=== PATIENT | male | born 1980 | race Two or more races ===

== ENCOUNTER 2023-01-19 07:55 | Emergency (ER) | payer OTHER ==
[2023-01-19] MEDS ORDERED: CEFAZOLIN SODIUM 1 GM/VIAL ONE (08:17)
[2023-01-19] MEDS ORDERED: NA CHLORIDE 0.9% 100 ML ONE (08:17)
[2023-01-19] MEDS ORDERED: TDAP (DIPHTH,PERTUSS(ACELL),TET VAC) 0.5 ML VIAL IMVAC ONE (08:17)
[2023-01-19 08:30] LABS: Absolute Lymphocytes (CBC) 1.5 K/uL (0.7-4.9); Hematocrit 41.1 % (39.6-49.0); Lymphocytes % 14.7 % (15.3-44.8); MCV 92.8 fL (80-100); MPV 6.8 fL (7.6-11.3); RBC Red Blood Cell Count 4.42 M/uL (4.33-5.43)
[2023-01-19 08:48] LABS: Albumin 4.3 g/dL (3.4-5.0); Bilirubin Total 0.6 mg/dL (0.2-1.0); Potassium 3.6 mmol/L (3.5-5.1)
--- NOTE | 2023-01-19 08:51 | RAD REPORT ---
EXAM DESCRIPTION: RAD - Hand Right 3 View - 01/19/2023 8:38 am CLINICAL HISTORY: PAIN COMPARISON: No comparisons FINDINGS/IMPRESSION: Dislocation at the fifth MCP. The distal fifth finger is dislocated radially. T ransversely oriented fracture at the mid fourth metacarpal with greater than a shaft width of radial displacement and 8 millimeters of overriding.
[2023-01-19] MEDS ORDERED: FENTANYL CITR 100 MCG/2 ML ONE (09:00)
[2023-01-19] MEDS ORDERED: NA CHLORIDE 0.9% 50 ML ONE (09:46)
[2023-01-19] MEDS ORDERED: CEFTRIAXONE 1000 MG/VIAL ONE (09:46)
[2023-01-19] MEDS ORDERED: Ringers Lactate 1,000 ML IV ONE (09:46)
[2023-01-19] MEDS ORDERED: ONDANSETRON 4 MG/2 ML VIAL ONE (09:52)
[2023-01-19] MEDS ORDERED: MORPHINE 4 MG/ML SYR ONE (10:44)
--- NOTE | 2023-02-01 16:09 | ER ---
Nurse's Notes [facility] Name: Carlos Mendez Age: 42 yrs Sex: Male : 1980 Arrival Date: 01/19/2023 Time: 07:56 Bed 3 Private MD: Diagnosis: Open fracture to right fourth metacarpal;Dislocation of left little finger Presentation: 01/19 07:56 Chief complaint: Patient states: Avulsion injury to right pinky/hand. C/O pain to right ld1 hand - reports being at work this morning, latch slammed down on right hand. Coronavirus screen: At this time, the client does not indicate any symptoms associated with coronavirus-19. Ebola Screen: No symptoms or risks identified at this time. Initial Sepsis Screen: Does the patient meet any 2 criteria? No. Patient's initial sepsis screen is negative. Does the patient have a suspected source of infection? Yes: Other: Open wound to right hand. Risk Assessment: Do you want to hurt yourself or someone else? Patient reports no desire to harm self or others. Onset of symptoms was January 19, 2023. 07:56 Method Of Arrival: EMS: [facility] ld1 07:56 Acuity: MELLISSA 3 ld1 Triage Assessment: 07:59 General: Appears in no apparent distress. comfortable, Behavior is calm, cooperative, ld1 appropriate for age. Pain: Complains of pain in right hand Pain does not radiate. Pain currently is 5 out of 10 on a pain scale. Quality of pain is described as throbbing. EENT: No signs and/or symptoms were reported regarding the EENT system. Neuro: Level of Consciousness is awake, alert, obeys commands, Oriented to person, place, time, situation. Cardiovascular: Capillary refill < 3 seconds Patient's skin is warm and dry. Respiratory: Airway is patent Respiratory effort is even, unlabored. GI: Abdomen is flat, non-distended. : No signs and/or symptoms were reported regarding the genitourinary system. Derm: No signs and/or symptoms reported regarding the dermatologic system. Musculoskeletal: No signs and/or symptoms reported regarding the musculoskeletal system. Injury Description: Crush injury sustained to right hand. Historical: - Allergies: 07:59 Ibuprofen; ld1 - Home Meds: 07:59 atorvastatin 40 mg oral tablet every evening [Active]; aspirin 81 mg Oral capsule once ld1 [Active]; losartan 50 mg oral tablet once [Active]; carvedilol 12.5 mg oral tablet once [Active]; - PSHx: 07:59 angioblasty; ld1 - Immunization history:: Adult Immunizations up to date, Last tetanus immunization: unknown. - Social history:: Smoking status: Patient denies any tobacco usage or history of. Patient/guardian denies using alcohol. - Family history:: not pertinent. Screenin:06 [facility] ED Fall Risk Assessment (Adult) History of falling in the last 3 months, ld1 including since admission No falls in past 3 months (0 pts). Abuse screen: Denies threats or abuse. Denies injuries from another. Nutritional screening: No deficits noted. Tuberculosis screening: No symptoms or risk factors identified. Assessment: 08:06 Reassessment: See triage assessmnet. ld1 09:10 Reassessment: Patient appears in no apparent distress at this time. No changes from ld1 previously documented assessment. Patient and/or family updated on plan of care and expected duration. Pain level reassessed. Patient is alert, oriented x 3, equal unlabored respirations, skin warm/dry/pink. 10:26 Reassessment: Patient appears in no apparent distress at this time. Patient and/or ld1 family updated on plan of care and expected duration. Pain level reassessed. PT waiting on EMS transport to surgery center. On phone with . reports minimal pain at this time. 10:42 Reassessment: Pt requesting pain medication prior to EMS transport. See MAR for orders. ld1 Vital Signs: 07:56 BP 154 / 97; Pulse 84; Resp 18; Temp 97.9(O); Pulse Ox 100% on R/A; Weight 75 kg; ld1 Height 5 ft. 7 in. ; Pain 5/10; 08:39 BP 142 / 99; Pulse 85; Resp 18; Pulse Ox 100% on R/A; ld1 09:15 BP 137 / 86; Pulse 84; Resp 18; Pulse Ox 100% on R/A; Pain 8/10; ld1 10:25 BP 141 / 84; Pulse 87; Resp 18; Pulse Ox 100% on R/A; ld1 10:42 BP 139 / 76; Pulse 87; Resp 18; Pulse Ox 100% on R/A; Pain 8/10; ld1 07:56 Body Mass Index 25.90 (75.00 kg, 170.18 cm) ld1 07:56 Pain Scale: Adult ld1 09:15 Pain Scale: Adult ld1 10:42 Pain Scale: Adult ld1 ED Course: 07:56 Patient arrived in ED. ld1 07:56 Mahin Schmid MD is Attending Physician. rt 07:59 Triage completed. ld1 07:59 Arm band placed on right wrist. ld1 08:06 Patient has correct armband on for positive identification. Placed in gown. Bed in low ld1 position. Call light in reach. Side rails up X2. Pulse ox on. NIBP on. Door closed. Noise minimized. Warm blanket given. 08:06 No provider procedures requiring assistance completed. ld1 08:29 Initial lab(s) drawn, by me, sent to lab. Inserted saline lock: 20 gauge in left bc6 antecubital area, using aseptic technique. 08:29 COVID-19 SARS RT PCR Sent. bc6 08:29 CMP Sent. bc6 08:30 CBC with Diff Sent. bc6 08:30 SARS RAPID Sent. bc6 08:36 COVID-19 SARS RT PCR Sent. ld1 08:39 Adela Casey, GRECIA is Primary Nurse. ld1 08:39 Hand Right 3 View XRAY In Process Unspecified. EDMS 10:43 Patient transferred, IV remains in place. 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 ld1 Exp: 09/28/2023. Lot #: [id number]. } Route: IM; Site: left deltoid; 09:08 Follow up: Response: (VIS) Vaccine information sheet provided today. Questions and/or ld1 concerns addressed. VIS edition date: Jun 16, 2021.; No adverse reaction 08:33 Drug: ceFAZolin IVPB 2 grams Route: IVPB; Infused Over: 30 mins; Site: left antecubital;ld1 09:08 Follow up: Response: No adverse reaction; IV Intake: 100ml ld1 09:08 Drug: fentaNYL (PF) IVP 100 mcg Route: IVP; Site: left antecubital; ld1 09:39 Follow up: Response: No adverse reaction ld1 09:51 Drug: Rocephin - Rocephin (cefTRIAXone) IVPB 1 grams Route: IVPB; Infused Over: 30 ld1 mins; Site: left antecubital; 09:51 Drug: Ringers - Lactated Ringers Solution IV 1000 ml Route: IV; Rate: 125 ml/hr; Site: ld1 left antecubital; 09:51 Drug: Ondansetron IVP 4 mg Route: IVP; Site: left antecubital; ld1 10:42 Follow up: Response: No adverse reaction; Nausea is decreased ld1 10:42 Drug: morphine IVP or IV 4 mg Route: IVP; Infused Over: 4 mins; Site: left antecubital; ld1 10:42 Follow up: Response: No adverse reaction ld1 Medication: 08:06 VIS not applicable for this client. ld1 Intake: 09:08 IV: 100ml; Total: 100ml. ld1 Outcome: 09:02 ER care complete, transfer ordered by . rt 10:43 Transferred by ground EMS ld1 10:43 Condition: stable 10:43 Instructed on the need for transfer. 10:43 Patient left the ED. ld1 Signatures: Dispatcher [employer] EDMS Adela Casey RN RN ld1 Mahin Schmid MD MD rt Alondra Winchester bc6 Corrections: (The following items were deleted from the chart) 08:05 07:59 Allergies: No Known Allergies; ld1 ld1 10:26 09:15 BP 137 / 86; Pulse 84bpm; Resp 18bpm; Pulse Ox 100% RA; ld1 ld1
--- NOTE | 2023-02-01 16:09 | EDPHYS ---
Physician Documentation [facility] Name: Carlos Mendez Age: 42 yrs Sex: Male : 1980 Arrival Date: 01/19/2023 Time: 07:56 Bed 3 Private MD: ED Physician Mahin Schmid HPI: 01/19 07:58 This 42 yrs old Male presents to ER via Unassigned with complaints of Hand Injury. rt 07:58 Patient presents to the ED with an injury to the right hand occurring just prior to rt arrival. Patient was working on the [employer] when his sugar patch closed onto his hand causing a laceration. Patient states that the bone was protruding, he wrapped it on his own. Was brought here for further evaluation. Pain is aching nature, nonradiating, no other aggravating alleviating factors. He denies any other injuries.. Historical: - Allergies: 07:59 Ibuprofen; ld1 - Home Meds: 07:59 atorvastatin 40 mg oral tablet every evening [Active]; aspirin 81 mg Oral capsule once ld1 [Active]; losartan 50 mg oral tablet once [Active]; carvedilol 12.5 mg oral tablet once [Active]; - PSHx: 07:59 angioblasty; ld1 - Immunization history:: Adult Immunizations up to date, Last tetanus immunization: unknown. - Social history:: Smoking status: Patient denies any tobacco usage or history of. Patient/guardian denies using alcohol. - Family history:: not pertinent. ROS: 07:58 Constitutional: Negative for fever, chills, and weight loss, Cardiovascular: Negative rt for chest pain, palpitations, and edema, Respiratory: Negative for shortness of breath, cough, wheezing, and pleuritic chest pain, Abdomen/GI: Negative for abdominal pain, nausea, vomiting, diarrhea, and constipation, Skin: Negative for injury, rash, and discoloration, Neuro: Negative for headache, weakness, numbness, tingling, and seizure, Psych: Negative for depression, anxiety, suicide ideation, homicidal ideation, and hallucinations. 07:58 MS/extremity: Positive for injury or acute deformity, laceration. Vital Signs: 07:56 BP 154 / 97; Pulse 84; Resp 18; Temp 97.9(O); Pulse Ox 100% on R/A; Weight 75 kg; ld1 Height 5 ft. 7 in. ; Pain 5/10; 08:39 BP 142 / 99; Pulse 85; Resp 18; Pulse Ox 100% on R/A; ld1 09:15 BP 137 / 86; Pulse 84; Resp 18; Pulse Ox 100% on R/A; Pain 8/10; ld1 10:25 BP 141 / 84; Pulse 87; Resp 18; Pulse Ox 100% on R/A; ld1 10:42 BP 139 / 76; Pulse 87; Resp 18; Pulse Ox 100% on R/A; Pain 8/10; ld1 07:56 Body Mass Index 25.90 (75.00 kg, 170.18 cm) ld1 07:56 Pain Scale: Adult ld1 09:15 Pain Scale: Adult ld1 10:42 Pain Scale: Adult ld1 Procedures: 10:39 Reduction: of the MCP of right little finger, using traction, Patient tolerated well. rt During the procedure, was noted that the fracture went transversely through the joint space, the articular surface was visualized, unable to reduce due to lack of supporting structures.. MDM: 07:57 Patient medically screened. rt 10:38 Differential diagnosis: dislocation, open fracture, Dislocation. Data reviewed: vital rt signs, nurses notes, radiologic studies. Consideration of Admission/Observation Escalation of care including admission/observation considered. Patient be transferred for hand surgery. Management of patient was discussed with the following: Traffic Monitor Specialist: Discussed with hand surgeon who accepts transfer, will take the patient to the operating room. I considered the following discharge prescriptions or medication management in the emergency department Medications were administered in the Emergency Department. See MAR. Independent interpretation of the following test(s) in the Emergency Department X-Ray: My interpretation is Fracture, dislocation seen on my interpretation of the x-ray images. Test considered but Not performed: CT: No other images needed, no other injuries. Care significantly affected by the following chronic conditions: Hypertension. Counseling: I had a detailed discussion with the patient and/or guardian regarding: the historical points, exam findings, and any diagnostic results supporting the discharge/admit diagnosis, radiology results, the need to transfer to another facility, [facility] does not immediately have the required specialist. 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 ld1 Exp: 09/28/2023. Lot #: [id number]. } Route: IM; Site: left deltoid; 09:08 Follow up: Response: (VIS) Vaccine information sheet provided today. Questions and/or ld1 concerns addressed. VIS edition date: Jun 16, 2021.; No adverse reaction 08:33 Drug: ceFAZolin IVPB 2 grams Route: IVPB; Infused Over: 30 mins; Site: left antecubital;ld1 09:08 Follow up: Response: No adverse reaction; IV Intake: 100ml ld1 09:08 Drug: fentaNYL (PF) IVP 100 mcg Route: IVP; Site: left antecubital; ld1 09:39 Follow up: Response: No adverse reaction ld1 09:51 Drug: Rocephin - Rocephin (cefTRIAXone) IVPB 1 grams Route: IVPB; Infused Over: 30 ld1 mins; Site: left antecubital; 09:51 Drug: Ringers - Lactated Ringers Solution IV 1000 ml Route: IV; Rate: 125 ml/hr; Site: ld1 left antecubital; 09:51 Drug: Ondansetron IVP 4 mg Route: IVP; Site: left antecubital; ld1 10:42 Follow up: Response: No adverse reaction; Nausea is decreased ld1 10:42 Drug: morphine IVP or IV 4 mg Route: IVP; Infused Over: 4 mins; Site: left antecubital; ld1 10:42 Follow up: Response: No adverse reaction ld1 Disposition Summary: 01/19/23 09:02 Transfer Ordered Transfer Location: Other Acute Care Facility rt Reason: Specialty rt Condition: Stable rt Problem: new rt Symptoms: have improved rt Accepting Physician: Dr. Tovar(01/19/23 10:43) ld1 Diagnosis - Open fracture to right fourth metacarpal rt - Dislocation of left little finger rt Forms: - Medication Reconciliation Form rt - SBAR form rt Signatures: Dispatcher [employer] Adela Falcon RN RN ld1 Mahin Schmid MD MD rt Corrections: (The following items were deleted from the chart) 08:05 07:59 Allergies: No Known Allergies; ld1 ld1 09:24 09:02 Dr. carter rt 10:43 09:24 Dr. Tovar rt ld1
== END 2023-01-19 10:43 ==
LOC: ER 07:55
PROC: 0PST35Z Reposition Right Finger Phalanx with External Fixation Device, Percutaneous Approach (ICD-10-PCS; principal; 2023-01-19)
DX: S62.304B Unspecified fracture of fourth metacarpal bone, right hand, initial encounter for open fracture (principal); S63.257A Unspecified dislocation of left little finger, initial encounter; Z20.822 Contact with and (suspected) exposure to COVID-19; Z23 Encounter for immunization
CPT/HCPCS: 85025; 36415; 80053; 73130; 90471; 96375; 96374; 99285; 26755; U0003; J3010; J2405; J0690; J0696; J7120